=== PATIENT | female | born 1980 | race Caucasian/White ===

== ENCOUNTER 2019-03-28 15:26 | Emergency (ER) | payer BC ==
[~2019-03-28] VITALS: Ht 160 cm; Wt 56.8 kg
[2019-03-28] MEDS ORDERED: FORFIVO XL450 MG PO (15:37)
[2019-03-28] MEDS ORDERED: MULTIVITAMIN1 SGL PO (15:37)
[2019-03-28 17:51] VITALS: BP 127/90
== END 2019-03-28 16:56 | disposition home or self-care (01) ==
LOC: ED 15:26
DX: S09.90XA Unspecified injury of head, initial encounter (principal); F07.81 Postconcussional syndrome; F32.9 Major depressive disorder, single episode, unspecified; W01.198A Fall on same level from slipping, tripping and stumbling with subsequent striking against other object, initial encounter; Y92.009 Unspecified place in unspecified non-institutional (private) residence as the place of occurrence of the external cause

== ENCOUNTER 2020-07-28 15:25 | Emergency (ER) | payer BC ==
[~2020-07-28 15:25] MED LIST: FORFIVO XL450 MG PO; MULTIVITAMIN1 SGL PO
[2020-07-28] MEDS ORDERED: LEXAPRO5 MG PO (15:42)
[2020-07-28] MEDS ORDERED: DAILY VITE1 TA1 PO (15:42)
[2020-07-28] MEDS ORDERED: WELLBUTRIN XL300 M1 PO (15:42)
[2020-07-28 16:09] LABS: EOS # 0.1 (0.04-0.40); EOS % 2.1 % (1.0-5.0); HEMATOCRIT 42.9 % (37.0-47.0); HEMOGLOBIN 14.1 g/dL (12.5-16.0); LYMPH# 2.4 (1.50-4.00); MEAN CELL VOLUME 92 fl (78-100); MEAN CORPUSCULAR HEMOGLOBIN 30 pg (27-31); MEAN CORPUSCULAR HGB CONC 33 g/dL (33-37); MEAN PLATELET VOLUME 8.9 fl (7.4-10.4); MONO # 0.4 (0.20-0.80); NEU # 3.6 (1.40-6.50); PLATELET COUNT 220 K/mm3 (130-400); RED BLOOD COUNT 4.65 M/mm3 (4.10-5.30); RED CELL DISTRIBUTION WIDTH 12.1 % (11.5-14.5); WHITE BLOOD COUNT 6.6 K/mm3 (4.8-10.8)
[2020-07-28 16:20] LABS: ALBUMIN 4.2 g/dL (3.5-5.0); POTASSIUM 3.7 mmol/L (3.5-5.1)
[2020-07-28 16:21] LABS: SODIUM 140 mmol/L (136-145)
[2020-07-28 16:22] LABS: CALCIUM 8.8 mg/dL (8.3-10.5)
[2020-07-28 16:23] LABS: GLUCOSE 86 mg/dL (65-105); TOTAL PROTEIN 7.1 g/dL (6.4-8.3)
[2020-07-28 16:24] LABS: CARBON DIOXIDE 22 mmol/L (22-29)
[2020-07-28 16:25] LABS: TOTAL BILIRUBIN 0.4 mg/dL (0.2-1.2)
[2020-07-28 16:26] LABS: D-DIMER 0.1 mg/L FEU (0.15-0.50)
[2020-07-28 16:28] LABS: AST-SGOT 21 U/L (5-34)
[2020-07-28 16:29] LABS: ALT/SGPT 27 U/L (0-55)
[2020-07-28 16:40] LABS: TROPONIN-I < 0.03 ng/mL (<0.030)
[2020-07-28 17:00] LABS: ERYTHROCYTE SEDIMENTATION RATE 4 mm/hr (0-20)
[2020-07-28 18:47] VITALS: BP 129/91
== END 2020-07-28 19:05 | disposition home or self-care (01) ==
LOC: ED 15:25
PROVIDERS: Nurse Practitioner Family
DX: I95.1 Orthostatic hypotension (principal); R06.02 Shortness of breath; Z86.16 Personal history of COVID-19
CPT/HCPCS: J7030